=== PATIENT | male | born 1995 | race Caucasian/White ===

== ENCOUNTER 2019-01-24 11:30 | Emergency (ER) | payer SELFPAY ==
[~2019-01-24] VITALS: Ht 175.3 cm; Wt 65.9 kg
[2019-01-24 12:33] VITALS: BP 134/79
== END 2019-01-24 12:46 | disposition left against medical advice (07) ==
LOC: EMS 11:33
DX: F15.10 Other stimulant abuse, uncomplicated (principal); F17.210 Nicotine dependence, cigarettes, uncomplicated

== ENCOUNTER 2019-05-08 09:52 | Inpatient (IN) | payer MEDICAID ==
[~2019-05-08] VITALS: Ht 180.3 cm; Wt 56.2 kg
[2019-05-08 10:27] LABS: BASOPHILS % (AUTO) 0.9 % (0.0-2.0); EOSINOPHILS % (AUTO) 1.6 % (1.0-6.0); HEMATOCRIT 41.9 % (41-53); HEMOGLOBIN 13.7 g/dL (13.5-17.5); LYMPHOCYTES # (AUTO) 3.9 K/uL (1.0-4.8); LYMPHOCYTES % (AUTO) 22.2 % (22.0-44.0); MEAN CORPUSCULAR HEMOGLOBIN 28.2 pg (26.0-34.0); MEAN CORPUSCULAR HGB CONC 32.7 G/dL (31.0-37.0); MEAN CORPUSCULAR VOLUME 86 fL (80-100); MONOCYTES # (AUTO) 1.3 K/uL (0.1-1.0); MONOCYTES % (AUTO) 7.1 % (2.0-9.0); NEUTROPHILS # (AUTO) 12.1 K/uL (1.8-7.7); NEUTROPHILS % (AUTO) 68.2 % (40.0-70.0); PLATELET COUNT (AUTO) 377 K/uL (150-450); RED BLOOD CELL COUNT(AUTO) 4.85 MIL/uL (4.50-5.90); RED CELL DISTRIBUTION WIDTH 13.6 % (11.5-14.5)
[2019-05-08 10:36] LABS: ANION GAP 13 mmol/L (8-16); CALCIUM, TOTAL 9.3 mg/dL (8.8-10.5); CARBON DIOXIDE 26 mmol/L (22-29); CHLORIDE 104 mmol/L (98-107); CREATININE 0.88 mg/dL (0.60-1.30); GLOMERULAR FILTR. RATE CALC > 60 mL/min (>60); GLUCOSE,RANDOM 92 mg/dL (70-110); POTASSIUM 4.2 mmol/L (3.5-5.1); SODIUM SERUM 143 mmol/L (136-145); UREA NITROGEN, BLOOD 18 mg/dL (7-18)
[2019-05-08 10:41] LABS: SALICYLATE 1.3 mg/dL (2.8-20.0)
[2019-05-08 10:42] LABS: ALANINE AMINOTRANSFERASE 35 U/L (12-78); ALBUMIN 3.5 g/dL (3.4-5.0); ALKALINE PHOSPHATASE 85 U/L (46-116); ASPARTATE AMINOTRANSFERASE 41 U/L (15-37); BILIRUBIN,TOTAL 0.3 mg/dL (0.1-1.0); TOTAL PROTEIN, SERUM 7.6 g/dL (6.4-8.2)
[2019-05-08 10:47] LABS: ACETAMINOPHEN < 2 mcg/mL (10-30)
[2019-05-08 10:48] LABS: AMPHET/METH SCREEN,URINE POSITIVE (NEGATIVE); BARBITURATE SCREEN, URINE NEGATIVE (NEGATIVE); BENZODIAZEPINES SCREEN,URINE NEGATIVE (NEGATIVE); CANNABINOID SCREEN,URINE POSITIVE (NEGATIVE); COCAINE SCREEN,URINE POSITIVE (NEGATIVE); METHADONE SCREEN, URINE NEGATIVE (NEGATIVE); OPIATE SCREEN,URINE NEGATIVE (NEGATIVE)
[2019-05-08 10:50] LABS: PHENCYCLIDINE SCREEN,URINE NEGATIVE (NEGATIVE)
[2019-05-08 10:52] LABS: APPEARANCE,URINE CLEAR (CLEAR); BILIRUBIN,URINE NEGATIVE (NEGATIVE); GLUCOSE, URINE (UA) NEGATIVE (NEGATIVE); KETONES,URINE NEGATIVE (NEGATIVE); LEUKOCYTE ESTERASE ,URINE NEGATIVE (NEGATIVE); NITRATE,URINE NEGATIVE (NEGATIVE); OCCULT BLOOD,URINE NEGATIVE (NEGATIVE); PROTEIN,URINE NEGATIVE (NEGATIVE); UROBILINOGEN,URINE 0.2 mg/dL (<=1.0)
[2019-05-08] MEDS ORDERED: HALOPERIDOL LACTATE 5 MG/ML VIAL ONE (10:52)
[2019-05-08] MEDS ORDERED: DiphenhydrAMINE HCL 50 MG/ML VIAL ONE (10:52)
[2019-05-08] MEDS ORDERED: LORazepam 2 MG/ML VIAL ONE (10:52)
[2019-05-08] MEDS ORDERED: LORazepam 2 MG/ML VIAL IM ONE (11:00)
[2019-05-08] MEDS ORDERED: HALOPERIDOL LACTATE 5 MG/ML VIAL IM ONE (11:00)
[2019-05-08] MEDS ORDERED: DiphenhydrAMINE HCL 50 MG/ML VIAL IM ONE (11:00)
[2019-05-08 17:02] VITALS: BP_SYST 105; BP_DIAS 60; BP_DIAS 66
[2019-05-08] MEDS ORDERED: ALBUTEROL SULFATE HFA 90 MCG/PUFF 8 GM INHALER IH PRN (18:15)
[2019-05-08] MEDS ORDERED: MAG HYDROX/AL HYDROX/SIMETH ES 30 ML SUSPENSION UDCUP PO PRN (18:15)
[2019-05-08] MEDS ORDERED: PETROLATUM,WHITE 28 GM JELLY TP PRN (18:15)
[2019-05-08] MEDS ORDERED: CloNIDine HCL 0.1 MG TABLET PO PRN (18:15)
[2019-05-08] MEDS ORDERED: LOPERAMIDE HCL 2 MG CAPSULE PO PRN (18:15)
[2019-05-08] MEDS ORDERED: ACETAMINOPHEN 325 MG TABLET PO PRN (18:15)
[2019-05-08] MEDS ORDERED: BACITRACIN 28.4 GM OINTMENT TP PRN (18:15)
[2019-05-08] MEDS ORDERED: BENZOCAINE/MENTHOL LOZENGE MM PRN (18:15)
[2019-05-08] MEDS ORDERED: MAGNESIUM HYDROXIDE SUSPENSION 30 ML UDCUP PO PRN (18:15)
[2019-05-08] MEDS ORDERED: ONDANSETRON HCL 4 MG TABLET PO PRN (18:15)
[2019-05-08] MEDS ORDERED: IBUPROFEN 600 MG TABLET PO PRN (18:15)
[2019-05-09 05:15] VITALS: BP 112/68
[2019-05-09] MEDS: DOCUSATE SODIUM 100 MG CAPSULE PO SCH (08:37)
[2019-05-09] MEDS: LORazepam 2 MG TABLET PO PRN ×2 (08:37→14:45)
[2019-05-09] MEDS: OMEPRAZOLE 20 MG CAPSULE PO SCH (08:37)
[2019-05-09 09:13] LABS: FREE T4 (FREE THYROXINE) 1.19 ng/dL (0.76-1.46); THYROID STIMULATING HORMONE 0.69 uIU/mL (0.36-3.74)
[2019-05-09] MEDS: HALOPERIDOL 5 MG TABLET PO PRN (14:45)
[2019-05-09 16:00] VITALS: BP 108/68
[2019-05-09] MEDS: QUEtiapine FUMARATE 200 MG TABLET PO SCH (16:42)
[2019-05-09] MEDS: LITHIUM CARBONATE 300 MG CAPSULE PO SCH (16:42)
[2019-05-10 08:07] LABS: BAND NEUTROPHILS % (MANUAL) 0 % (0-5)
[2019-05-10 08:12] LABS: HEMATOCRIT 44.3 % (41-53); HEMOGLOBIN 14.4 g/dL (13.5-17.5); MEAN CORPUSCULAR HEMOGLOBIN 28.4 pg (26.0-34.0); MEAN CORPUSCULAR HGB CONC 32.6 G/dL (31.0-37.0); MEAN CORPUSCULAR VOLUME 87 fL (80-100); PLATELET COUNT (AUTO) 329 K/uL (150-450); RED BLOOD CELL COUNT(AUTO) 5.08 MIL/uL (4.50-5.90); RED CELL DISTRIBUTION WIDTH 13.6 % (11.5-14.5)
[2019-05-10] MEDS: MULTIVITAMINS WITH MINERALS, THERAPEUTIC TABLET PO SCH (08:14)
[2019-05-10] MEDS: LORazepam 2 MG TABLET PO PRN ×3 (08:15→16:45)
[2019-05-10] MEDS: QUEtiapine FUMARATE 200 MG TABLET PO SCH ×2 (08:15→16:45)
[2019-05-10] MEDS: DOCUSATE SODIUM 100 MG CAPSULE PO SCH (08:15)
[2019-05-10] MEDS: LITHIUM CARBONATE 300 MG CAPSULE PO SCH ×2 (08:15→16:45)
[2019-05-10] MEDS: OMEPRAZOLE 20 MG CAPSULE PO SCH (08:15)
[2019-05-10 08:24] LABS: ANION GAP 5 mmol/L (8-16); CALCIUM, TOTAL 9.1 mg/dL (8.8-10.5); CARBON DIOXIDE 26 mmol/L (22-29); CHLORIDE 104 mmol/L (98-107); CREATININE 0.78 mg/dL (0.60-1.30); GLOMERULAR FILTR. RATE CALC > 60 mL/min (>60); GLUCOSE,RANDOM 77 mg/dL (70-110); PHOSPHORUS 3.2 mg/dL (2.5-4.9); POTASSIUM 4.5 mmol/L (3.5-5.1); SODIUM SERUM 135 mmol/L (136-145); UREA NITROGEN, BLOOD 14 mg/dL (7-18)
[2019-05-10 08:59] LABS: BASOPHILS % (MANUAL) 1 % (0-2); LYMPHOCYTES % (MANUAL) 19 % (22-44); MONOCYTES % (MANUAL) 5 % (2-9); SEGMENTED NEUTROPHILS % 75 % (40-70)
[2019-05-10 09:14] VITALS: BP 113/71
[2019-05-10 16:45] VITALS: BP 115/72
[2019-05-11 06:35] VITALS: BP 116/74
[2019-05-11 08:12] LABS: HEMATOCRIT 46.5 % (41-53); HEMOGLOBIN 15.5 g/dL (13.5-17.5); MEAN CORPUSCULAR HEMOGLOBIN 29.2 pg (26.0-34.0); MEAN CORPUSCULAR HGB CONC 33.4 G/dL (31.0-37.0); MEAN CORPUSCULAR VOLUME 88 fL (80-100); PLATELET COUNT (AUTO) 328 K/uL (150-450); RED BLOOD CELL COUNT(AUTO) 5.31 MIL/uL (4.50-5.90); RED CELL DISTRIBUTION WIDTH 13.9 % (11.5-14.5)
[2019-05-11 08:15] VITALS: BP 109/63
[2019-05-11] MEDS: MAGNESIUM OXIDE 400 MG TABLET PO SCH ×2 (08:17→17:12)
[2019-05-11] MEDS: DOCUSATE SODIUM 100 MG CAPSULE PO SCH (08:17)
[2019-05-11] MEDS: OMEPRAZOLE 20 MG CAPSULE PO SCH (08:17)
[2019-05-11] MEDS: MULTIVITAMINS WITH MINERALS, THERAPEUTIC TABLET PO SCH (08:17)
[2019-05-11] MEDS: LITHIUM CARBONATE 300 MG CAPSULE PO SCH ×2 (08:17→17:11)
[2019-05-11] MEDS: QUEtiapine FUMARATE 200 MG TABLET PO SCH ×2 (08:17→17:11)
[2019-05-11 08:31] LABS: BAND NEUTROPHILS % (MANUAL) 1 % (0-5); LYMPHOCYTES % (MANUAL) 22 % (22-44); MONOCYTES % (MANUAL) 5 % (2-9); SEGMENTED NEUTROPHILS % 72 % (40-70)
[2019-05-11 08:39] LABS: ANION GAP 7 mmol/L (8-16); CALCIUM, TOTAL 9.6 mg/dL (8.8-10.5); CARBON DIOXIDE 28 mmol/L (22-29); CHLORIDE 101 mmol/L (98-107); CREATININE 0.87 mg/dL (0.60-1.30); GLOMERULAR FILTR. RATE CALC > 60 mL/min (>60); GLUCOSE,RANDOM 80 mg/dL (70-110); PHOSPHORUS 4.2 mg/dL (2.5-4.9); POTASSIUM 5.2 mmol/L (3.5-5.1); SODIUM SERUM 136 mmol/L (136-145); UREA NITROGEN, BLOOD 18 mg/dL (7-18)
[2019-05-11 16:00] VITALS: BP 141/83
[2019-05-11] MEDS: LORazepam 2 MG TABLET PO PRN (16:47)
[2019-05-11] MEDS: HALOPERIDOL 5 MG TABLET PO PRN (16:47)
[2019-05-11] MEDS ORDERED: SODIUM POLYSTYRENE SULFONATE 15 GM/60 ML SUSPENSION BOTTLE PO ONE (20:45)
[2019-05-11] MEDS: ZOLPIDEM TARTRATE 10 MG TABLET PO PRN (21:26)
[2019-05-12 07:48] LABS: BASOPHILS % (AUTO) 0.7 % (0.0-2.0); EOSINOPHILS % (AUTO) 1.8 % (1.0-6.0); HEMATOCRIT 46.6 % (41-53); LYMPHOCYTES # (AUTO) 2.9 K/uL (1.0-4.8); LYMPHOCYTES % (AUTO) 24.1 % (22.0-44.0); MEAN CORPUSCULAR HEMOGLOBIN 28.4 pg (26.0-34.0); MEAN CORPUSCULAR HGB CONC 32.3 G/dL (31.0-37.0); MEAN CORPUSCULAR VOLUME 88 fL (80-100); MONOCYTES # (AUTO) 0.8 K/uL (0.1-1.0); MONOCYTES % (AUTO) 6.4 % (2.0-9.0); NEUTROPHILS # (AUTO) 7.9 K/uL (1.8-7.7); PLATELET COUNT (AUTO) 333 K/uL (150-450); RED BLOOD CELL COUNT(AUTO) 5.29 MIL/uL (4.50-5.90); RED CELL DISTRIBUTION WIDTH 13.9 % (11.5-14.5)
[2019-05-12] MEDS: LORazepam 2 MG TABLET PO PRN ×2 (08:28→16:49)
[2019-05-12] MEDS: MULTIVITAMINS WITH MINERALS, THERAPEUTIC TABLET PO SCH (08:28)
[2019-05-12] MEDS: MAGNESIUM OXIDE 400 MG TABLET PO SCH ×2 (08:29→16:49)
[2019-05-12] MEDS: LITHIUM CARBONATE 300 MG CAPSULE PO SCH ×2 (08:29→16:49)
[2019-05-12] MEDS: QUEtiapine FUMARATE 200 MG TABLET PO SCH ×2 (08:29→16:49)
[2019-05-12] MEDS: DOCUSATE SODIUM 100 MG CAPSULE PO SCH (08:29)
[2019-05-12] MEDS: OMEPRAZOLE 20 MG CAPSULE PO SCH (08:29)
[2019-05-12 08:33] LABS: ALANINE AMINOTRANSFERASE 29 U/L (12-78); ALBUMIN 3.3 g/dL (3.4-5.0); ALKALINE PHOSPHATASE 78 U/L (46-116); ANION GAP 7 mmol/L (8-16); ASPARTATE AMINOTRANSFERASE 26 U/L (15-37); BILIRUBIN,TOTAL 0.2 mg/dL (0.1-1.0); CALCIUM, TOTAL 9.3 mg/dL (8.8-10.5); CARBON DIOXIDE 27 mmol/L (22-29); CHLORIDE 101 mmol/L (98-107); CREATININE 0.88 mg/dL (0.60-1.30); GLOMERULAR FILTR. RATE CALC > 60 mL/min (>60); GLUCOSE,RANDOM 84 mg/dL (70-110); POTASSIUM 4.4 mmol/L (3.5-5.1); SODIUM SERUM 135 mmol/L (136-145); TOTAL PROTEIN, SERUM 8.4 g/dL (6.4-8.2); UREA NITROGEN, BLOOD 25 mg/dL (7-18)
[2019-05-13 04:54] VITALS: BP 127/68
[2019-05-13 08:16] VITALS: BP 109/63
[2019-05-13] MEDS: DOCUSATE SODIUM 100 MG CAPSULE PO SCH (08:33)
[2019-05-13] MEDS: MAGNESIUM OXIDE 400 MG TABLET PO SCH ×2 (08:33→17:02)
[2019-05-13] MEDS: LORazepam 2 MG TABLET PO PRN ×3 (08:33→20:26)
[2019-05-13] MEDS: LITHIUM CARBONATE 300 MG CAPSULE PO SCH ×2 (08:34→17:02)
[2019-05-13] MEDS: OMEPRAZOLE 20 MG CAPSULE PO SCH (08:34)
[2019-05-13] MEDS: MULTIVITAMINS WITH MINERALS, THERAPEUTIC TABLET PO SCH (08:34)
[2019-05-13] MEDS: QUEtiapine FUMARATE 200 MG TABLET PO SCH ×2 (08:34→17:02)
[2019-05-13 16:28] VITALS: BP 127/72
[2019-05-13] MEDS ORDERED: BACITRACIN 0.9 GM PACKET OINTMENT TP ONE (17:30)
[2019-05-13] MEDS ORDERED: CEPHALEXIN MONOHYDRATE 500 MG CAPSULE PO ONE (17:30)
[2019-05-13] MEDS: ZOLPIDEM TARTRATE 10 MG TABLET PO PRN (20:26)
[2019-05-14] MEDS: LORazepam 2 MG TABLET PO PRN ×2 (04:04→16:52)
[2019-05-14] MEDS: HALOPERIDOL 5 MG TABLET PO PRN ×2 (04:04→16:52)
[2019-05-14 05:18] VITALS: BP 118/67
[2019-05-14 08:00] VITALS: BP 120/62
[2019-05-14] MEDS ORDERED: CEPHALEXIN MONOHYDRATE 500 MG CAPSULE PO SCH (09:00)
[2019-05-14] MEDS ORDERED: BACITRACIN 28.4 GM OINTMENT TP SCH (09:00)
[2019-05-14] MEDS: SERTRALINE HCL 50 MG TABLET PO SCH (09:45)
[2019-05-14] MEDS: MAGNESIUM OXIDE 400 MG TABLET PO SCH ×2 (09:46→16:51)
[2019-05-14] MEDS: OMEPRAZOLE 20 MG CAPSULE PO SCH (09:46)
[2019-05-14] MEDS: DOCUSATE SODIUM 100 MG CAPSULE PO SCH (09:46)
[2019-05-14] MEDS: MULTIVITAMINS WITH MINERALS, THERAPEUTIC TABLET PO SCH (09:47)
[2019-05-14] MEDS: LITHIUM CARBONATE 300 MG CAPSULE PO SCH ×2 (09:47→16:52)
[2019-05-14] MEDS: CEPHALEXIN MONOHYDRATE 500 MG CAPSULE PO SCH ×3 (09:47→16:52)
[2019-05-14] MEDS: QUEtiapine FUMARATE 200 MG TABLET PO SCH ×2 (09:47→16:52)
[2019-05-14] MEDS ORDERED: HALOPERIDOL LACTATE 5 MG/ML VIAL ONE (10:01)
[2019-05-14] MEDS ORDERED: LORazepam 2 MG/ML VIAL ONE (10:01)
[2019-05-14] MEDS ORDERED: LORazepam 2 MG/ML VIAL IM ONE ×2 (10:45→11:00)
[2019-05-14] MEDS ORDERED: DiphenhydrAMINE HCL 50 MG/ML VIAL IM ONE ×2 (10:45→11:00)
[2019-05-14] MEDS ORDERED: HALOPERIDOL LACTATE 5 MG/ML VIAL IM ONE (10:45)
[2019-05-14 16:00] VITALS: BP 104/65
[2019-05-15 00:43] VITALS: BP 130/80
[2019-05-15] MEDS: LORazepam 2 MG TABLET PO PRN ×2 (04:02→09:01)
[2019-05-15] MEDS: HALOPERIDOL 5 MG TABLET PO PRN ×2 (04:02→09:01)
[2019-05-15 08:19] VITALS: BP 118/73
[2019-05-15] MEDS: MAGNESIUM OXIDE 400 MG TABLET PO SCH ×2 (09:01→16:22)
[2019-05-15] MEDS: SERTRALINE HCL 50 MG TABLET PO SCH (09:01)
[2019-05-15] MEDS: OMEPRAZOLE 20 MG CAPSULE PO SCH (09:02)
[2019-05-15] MEDS: DOCUSATE SODIUM 100 MG CAPSULE PO SCH (09:02)
[2019-05-15] MEDS: MULTIVITAMINS WITH MINERALS, THERAPEUTIC TABLET PO SCH (09:02)
[2019-05-15] MEDS: LITHIUM CARBONATE 300 MG CAPSULE PO SCH ×2 (09:02→16:22)
[2019-05-15] MEDS: QUEtiapine FUMARATE 200 MG TABLET PO SCH ×2 (09:02→16:22)
[2019-05-15] MEDS: CEPHALEXIN MONOHYDRATE 500 MG CAPSULE PO SCH ×3 (09:02→16:22)
[2019-05-15 16:46] VITALS: BP 107/64
[2019-05-16 04:27] VITALS: BP 119/82
[2019-05-16] MEDS: QUEtiapine FUMARATE 200 MG TABLET PO SCH ×2 (08:50→16:19)
[2019-05-16] MEDS: CEPHALEXIN MONOHYDRATE 500 MG CAPSULE PO SCH ×3 (08:50→16:19)
[2019-05-16] MEDS: MAGNESIUM OXIDE 400 MG TABLET PO SCH ×2 (08:50→16:19)
[2019-05-16] MEDS: MULTIVITAMINS WITH MINERALS, THERAPEUTIC TABLET PO SCH (08:50)
[2019-05-16] MEDS: DOCUSATE SODIUM 100 MG CAPSULE PO SCH (08:50)
[2019-05-16] MEDS: OMEPRAZOLE 20 MG CAPSULE PO SCH (08:50)
[2019-05-16] MEDS: SERTRALINE HCL 50 MG TABLET PO SCH (08:50)
[2019-05-16] MEDS: LITHIUM CARBONATE 300 MG CAPSULE PO SCH ×2 (08:51→16:19)
[2019-05-16] MEDS: LORazepam 2 MG TABLET PO PRN ×2 (08:51→16:19)
[2019-05-16 10:32] VITALS: BP 109/61
[2019-05-16 12:37] LABS: HIV 1-2 SCREEN 4TH GEN W/RFLX Non Reactive (Non Reactive)
[2019-05-16 16:00] VITALS: BP 109/84
[2019-05-16] MEDS: HALOPERIDOL 5 MG TABLET PO PRN (16:19)
[2019-05-17 06:28] VITALS: BP 106/70
[2019-05-17 08:15] VITALS: BP 108/77
[2019-05-17] MEDS: QUEtiapine FUMARATE 200 MG TABLET PO SCH ×2 (08:29→16:42)
[2019-05-17] MEDS: OMEPRAZOLE 20 MG CAPSULE PO SCH (08:29)
[2019-05-17] MEDS: MAGNESIUM OXIDE 400 MG TABLET PO SCH ×2 (08:29→16:41)
[2019-05-17] MEDS: SERTRALINE HCL 50 MG TABLET PO SCH (08:29)
[2019-05-17] MEDS: MULTIVITAMINS WITH MINERALS, THERAPEUTIC TABLET PO SCH (08:29)
[2019-05-17] MEDS: DOCUSATE SODIUM 100 MG CAPSULE PO SCH (08:29)
[2019-05-17] MEDS: LITHIUM CARBONATE 300 MG CAPSULE PO SCH ×2 (08:29→16:41)
[2019-05-17] MEDS: CEPHALEXIN MONOHYDRATE 500 MG CAPSULE PO SCH ×3 (08:29→16:41)
[2019-05-17] MEDS: LORazepam 2 MG TABLET PO PRN (14:20)
[2019-05-17] MEDS: ZONISAMIDE 100 MG CAPSULE PO SCH (16:41)
[2019-05-18 08:21] VITALS: BP 109/64
[2019-05-18] MEDS ORDERED: SERT50TA12 PO (08:30)
[2019-05-18] MEDS ORDERED: QUET200T PO (08:30)
[2019-05-18] MEDS ORDERED: LITH300C3 PO (08:30)
[2019-05-18] MEDS ORDERED: CEPH500 PO (08:30)
[2019-05-18] MEDS ORDERED: [UNRECOGNIZED DRUG - CODE] PO (08:30)
[2019-05-18] MEDS: OMEPRAZOLE 20 MG CAPSULE PO SCH (08:56)
[2019-05-18] MEDS: SERTRALINE HCL 50 MG TABLET PO SCH (08:56)
[2019-05-18] MEDS: DOCUSATE SODIUM 100 MG CAPSULE PO SCH (08:56)
[2019-05-18] MEDS: MAGNESIUM OXIDE 400 MG TABLET PO SCH (08:56)
[2019-05-18] MEDS: QUEtiapine FUMARATE 200 MG TABLET PO SCH (08:56)
[2019-05-18] MEDS: MULTIVITAMINS WITH MINERALS, THERAPEUTIC TABLET PO SCH (08:56)
[2019-05-18] MEDS: CEPHALEXIN MONOHYDRATE 500 MG CAPSULE PO SCH ×2 (08:56→12:38)
[2019-05-18] MEDS: LITHIUM CARBONATE 300 MG CAPSULE PO SCH (08:56)
[2019-05-18] MEDS: ZONISAMIDE 100 MG CAPSULE PO SCH (08:57)
[2019-05-18] MEDS: LORazepam 2 MG TABLET PO PRN (08:57)
== END 2019-05-18 14:52 | disposition home or self-care (01) | DRG 750 ==
LOC: EMS 09:53 → B3A 13:54
DX: F25.1 Schizoaffective disorder, depressive type (principal); G40.909 Epilepsy, unspecified, not intractable, without status epilepticus; B15.9 Hepatitis A without hepatic coma; F12.10 Cannabis abuse, uncomplicated; F14.10 Cocaine abuse, uncomplicated; F15.10 Other stimulant abuse, uncomplicated; B19.20 Unspecified viral hepatitis C without hepatic coma; K59.00 Constipation, unspecified; G47.00 Insomnia, unspecified; F41.9 Anxiety disorder, unspecified; F17.210 Nicotine dependence, cigarettes, uncomplicated; D72.829 Elevated white blood cell count, unspecified; Z59.0 Homelessness; Z79.899 Other long term (current) drug therapy
CPT/HCPCS: 83735; 84100; 84439; 84443; 85007; 87389; 96372; G0480; G0481; J1200; J1630; J2060

== ENCOUNTER 2019-05-23 15:50 | Inpatient (IN) | payer MEDICAID ==
[~2019-05-23] VITALS: Ht 180.3 cm; Wt 70.3 kg
[~2019-05-23 15:50] MED LIST: CEPH500 PO; LITH300C3 PO; QUET200T PO; SERT50TA12 PO; [UNRECOGNIZED DRUG - CODE] PO
[2019-05-23 16:33] LABS: BASOPHILS % (AUTO) 0.7 % (0.0-2.0); EOSINOPHILS % (AUTO) 1.3 % (1.0-6.0); HEMATOCRIT 42.2 % (41-53); LYMPHOCYTES # (AUTO) 4.1 K/uL (1.0-4.8); LYMPHOCYTES % (AUTO) 27.4 % (22.0-44.0); MEAN CORPUSCULAR HEMOGLOBIN 28.8 pg (26.0-34.0); MEAN CORPUSCULAR VOLUME 87 fL (80-100); MONOCYTES # (AUTO) 1.1 K/uL (0.1-1.0); MONOCYTES % (AUTO) 7.6 % (2.0-9.0); NEUTROPHILS # (AUTO) 9.3 K/uL (1.8-7.7); PLATELET COUNT (AUTO) 338 K/uL (150-450); RED BLOOD CELL COUNT(AUTO) 4.85 MIL/uL (4.50-5.90); RED CELL DISTRIBUTION WIDTH 14.1 % (11.5-14.5)
[2019-05-23] MEDS ORDERED: LORazepam 2 MG/ML VIAL IM ONE (16:45)
[2019-05-23] MEDS ORDERED: HALOPERIDOL LACTATE 5 MG/ML VIAL IM ONE (16:45)
[2019-05-23] MEDS ORDERED: DiphenhydrAMINE HCL 50 MG/ML VIAL IM ONE (16:45)
[2019-05-23 16:50] LABS: ANION GAP 10 mmol/L (8-16); CALCIUM, TOTAL 9.1 mg/dL (8.8-10.5); CARBON DIOXIDE 27 mmol/L (22-29); CHLORIDE 103 mmol/L (98-107); CREATININE 0.98 mg/dL (0.60-1.30); GLOMERULAR FILTR. RATE CALC > 60 mL/min (>60); GLUCOSE,RANDOM 91 mg/dL (70-110); POTASSIUM 3.5 mmol/L (3.5-5.1); SODIUM SERUM 140 mmol/L (136-145); UREA NITROGEN, BLOOD 26 mg/dL (7-18)
[2019-05-23 16:56] LABS: ALANINE AMINOTRANSFERASE 31 U/L (12-78); ALBUMIN 3.9 g/dL (3.4-5.0); ALKALINE PHOSPHATASE 84 U/L (46-116); ASPARTATE AMINOTRANSFERASE 28 U/L (15-37); BILIRUBIN,TOTAL 0.5 mg/dL (0.1-1.0); TOTAL PROTEIN, SERUM 8.2 g/dL (6.4-8.2)
[2019-05-23 17:16] LABS: AMPHET/METH SCREEN,URINE POSITIVE (NEGATIVE); BARBITURATE SCREEN, URINE NEGATIVE (NEGATIVE); BENZODIAZEPINES SCREEN,URINE NEGATIVE (NEGATIVE); CANNABINOID SCREEN,URINE NEGATIVE (NEGATIVE); COCAINE SCREEN,URINE NEGATIVE (NEGATIVE); METHADONE SCREEN, URINE NEGATIVE (NEGATIVE); OPIATE SCREEN,URINE NEGATIVE (NEGATIVE); PHENCYCLIDINE SCREEN,URINE NEGATIVE (NEGATIVE)
[2019-05-23] MEDS ORDERED: ZOLPIDEM TARTRATE 10 MG TABLET PO PRN (18:15)
[2019-05-23 20:32] VITALS: BP 129/83
[2019-05-24] MEDS: HALOPERIDOL 5 MG TABLET PO PRN (08:38)
[2019-05-24] MEDS: LORazepam 2 MG TABLET PO PRN ×2 (08:38→15:33)
[2019-05-24 09:30] VITALS: BP 131/80
[2019-05-24] MEDS ORDERED: MAGNESIUM HYDROXIDE SUSPENSION 30 ML UDCUP PO PRN (14:00)
[2019-05-24] MEDS ORDERED: ALBUTEROL SULFATE HFA 90 MCG/PUFF 8 GM INHALER IH PRN (14:00)
[2019-05-24] MEDS ORDERED: MAG HYDROX/AL HYDROX/SIMETH ES 30 ML SUSPENSION UDCUP PO PRN (14:00)
[2019-05-24] MEDS ORDERED: CloNIDine HCL 0.1 MG TABLET PO PRN (14:00)
[2019-05-24] MEDS ORDERED: ONDANSETRON HCL 4 MG TABLET PO PRN (14:00)
[2019-05-24] MEDS ORDERED: ACETAMINOPHEN 325 MG TABLET PO PRN (14:00)
[2019-05-24] MEDS ORDERED: LOPERAMIDE HCL 2 MG CAPSULE PO PRN (14:00)
[2019-05-24] MEDS ORDERED: IBUPROFEN 600 MG TABLET PO PRN (14:00)
[2019-05-24] MEDS: SERTRALINE HCL 50 MG TABLET PO SCH (14:39)
[2019-05-24] MEDS: QUEtiapine FUMARATE 200 MG TABLET PO SCH (17:58)
[2019-05-24] MEDS: ZONISAMIDE 100 MG CAPSULE PO SCH (17:58)
[2019-05-24] MEDS: LITHIUM CARBONATE 300 MG CAPSULE PO SCH (17:58)
[2019-05-24 20:04] VITALS: BP 123/81
[2019-05-25] MEDS: LORazepam 2 MG TABLET PO PRN ×3 (05:53→16:20)
[2019-05-25] MEDS: HALOPERIDOL 5 MG TABLET PO PRN (06:34)
[2019-05-25] MEDS: SERTRALINE HCL 50 MG TABLET PO SCH (08:39)
[2019-05-25] MEDS: LITHIUM CARBONATE 300 MG CAPSULE PO SCH ×2 (08:40→16:06)
[2019-05-25] MEDS: ZONISAMIDE 100 MG CAPSULE PO SCH ×2 (08:40→16:06)
[2019-05-25] MEDS: DOCUSATE SODIUM 100 MG CAPSULE PO SCH (08:40)
[2019-05-25] MEDS: QUEtiapine FUMARATE 200 MG TABLET PO SCH ×2 (08:40→16:06)
[2019-05-25 09:04] LABS: HEMOGLOBIN A1C 5.4 % (4.5-6.2)
[2019-05-25 09:09] LABS: CHOL/HDL RATIO 2.7 (4.2-7.3); THYROID STIMULATING HORMONE 1.03 uIU/mL (0.36-3.74)
[2019-05-25 09:29] VITALS: BP 132/86
[2019-05-25 16:46] VITALS: BP 115/58
[2019-05-26] MEDS: LORazepam 2 MG TABLET PO PRN ×3 (06:33→16:50)
[2019-05-26] MEDS: QUEtiapine FUMARATE 200 MG TABLET PO SCH ×2 (07:42→16:50)
[2019-05-26] MEDS: SERTRALINE HCL 50 MG TABLET PO SCH (07:42)
[2019-05-26] MEDS: HALOPERIDOL 5 MG TABLET PO PRN ×3 (07:42→18:00)
[2019-05-26] MEDS: LITHIUM CARBONATE 300 MG CAPSULE PO SCH ×2 (07:42→16:50)
[2019-05-26] MEDS: DOCUSATE SODIUM 100 MG CAPSULE PO SCH (07:43)
[2019-05-26] MEDS: ZONISAMIDE 100 MG CAPSULE PO SCH ×2 (07:44→16:50)
[2019-05-26 08:03] VITALS: BP 130/83
[2019-05-26 08:46] LABS: BASOPHILS % (AUTO) 0.6 % (0.0-2.0); EOSINOPHILS % (AUTO) 2.2 % (1.0-6.0); HEMATOCRIT 43.8 % (41-53); HEMOGLOBIN 14.4 g/dL (13.5-17.5); LYMPHOCYTES # (AUTO) 3.5 K/uL (1.0-4.8); LYMPHOCYTES % (AUTO) 26.3 % (22.0-44.0); MEAN CORPUSCULAR HEMOGLOBIN 28.7 pg (26.0-34.0); MEAN CORPUSCULAR VOLUME 87 fL (80-100); MONOCYTES # (AUTO) 0.9 K/uL (0.1-1.0); MONOCYTES % (AUTO) 6.8 % (2.0-9.0); NEUTROPHILS # (AUTO) 8.5 K/uL (1.8-7.7); NEUTROPHILS % (AUTO) 64.1 % (40.0-70.0); PLATELET COUNT (AUTO) 301 K/uL (150-450); RED BLOOD CELL COUNT(AUTO) 5.03 MIL/uL (4.50-5.90); RED CELL DISTRIBUTION WIDTH 14.6 % (11.5-14.5)
[2019-05-26 09:12] LABS: ANION GAP 6 mmol/L (8-16); CALCIUM, TOTAL 9.2 mg/dL (8.8-10.5); CARBON DIOXIDE 27 mmol/L (22-29); CHLORIDE 102 mmol/L (98-107); CREATININE 0.97 mg/dL (0.60-1.30); GLOMERULAR FILTR. RATE CALC > 60 mL/min (>60); GLUCOSE,RANDOM 79 mg/dL (70-110); PHOSPHORUS 2.9 mg/dL (2.5-4.9); POTASSIUM 4.3 mmol/L (3.5-5.1); SODIUM SERUM 135 mmol/L (136-145); UREA NITROGEN, BLOOD 25 mg/dL (7-18)
[2019-05-26 17:46] VITALS: BP 120/77
[2019-05-27 08:20] VITALS: BP 110/63
[2019-05-27] MEDS: ZONISAMIDE 100 MG CAPSULE PO SCH ×2 (08:29→16:20)
[2019-05-27] MEDS: QUEtiapine FUMARATE 200 MG TABLET PO SCH ×2 (08:30→17:23)
[2019-05-27] MEDS: LITHIUM CARBONATE 300 MG CAPSULE PO SCH ×2 (08:30→16:20)
[2019-05-27] MEDS: SERTRALINE HCL 50 MG TABLET PO SCH (08:30)
[2019-05-27] MEDS: DOCUSATE SODIUM 100 MG CAPSULE PO SCH (08:31)
[2019-05-27] MEDS: LORazepam 2 MG TABLET PO PRN (16:20)
[2019-05-27] MEDS: HALOPERIDOL 5 MG TABLET PO PRN (16:21)
[2019-05-27 16:47] VITALS: BP 132/91
[2019-05-28] MEDS: HALOPERIDOL 5 MG TABLET PO PRN (06:51)
[2019-05-28] MEDS: LORazepam 2 MG TABLET PO PRN (06:51)
[2019-05-28 06:52] VITALS: BP 117/60
[2019-05-28] MEDS: ZONISAMIDE 100 MG CAPSULE PO SCH ×2 (09:13→16:32)
[2019-05-28] MEDS: DOCUSATE SODIUM 100 MG CAPSULE PO SCH (09:13)
[2019-05-28] MEDS: QUEtiapine FUMARATE 200 MG TABLET PO SCH ×2 (09:13→16:32)
[2019-05-28] MEDS: SERTRALINE HCL 50 MG TABLET PO SCH (09:13)
[2019-05-28] MEDS: LITHIUM CARBONATE 300 MG CAPSULE PO SCH ×2 (09:13→16:32)
[2019-05-28 09:28] VITALS: BP 129/84
[2019-05-28 09:50] LABS: HEMATOCRIT 43.8 % (41-53); HEMOGLOBIN 14.1 g/dL (13.5-17.5); MEAN CORPUSCULAR HEMOGLOBIN 28.3 pg (26.0-34.0); MEAN CORPUSCULAR HGB CONC 32.2 G/dL (31.0-37.0); MEAN CORPUSCULAR VOLUME 88 fL (80-100); PLATELET COUNT (AUTO) 309 K/uL (150-450); RED BLOOD CELL COUNT(AUTO) 4.99 MIL/uL (4.50-5.90); RED CELL DISTRIBUTION WIDTH 14.3 % (11.5-14.5)
[2019-05-28 10:14] LABS: ANION GAP 6 mmol/L (8-16); CARBON DIOXIDE 27 mmol/L (22-29); CHLORIDE 101 mmol/L (98-107); CREATININE 0.98 mg/dL (0.60-1.30); GLOMERULAR FILTR. RATE CALC > 60 mL/min (>60); GLUCOSE,RANDOM 103 mg/dL (70-110); PHOSPHORUS 3.9 mg/dL (2.5-4.9); POTASSIUM 4.2 mmol/L (3.5-5.1); SODIUM SERUM 134 mmol/L (136-145); UREA NITROGEN, BLOOD 28 mg/dL (7-18)
[2019-05-28 10:20] LABS: BAND NEUTROPHILS % (MANUAL) 3 % (0-5); EOSINOPHILS % (MANUAL) 1 % (1-6); LYMPHOCYTES % (MANUAL) 20 % (22-44); MONOCYTES % (MANUAL) 6 % (2-9); SEGMENTED NEUTROPHILS % 70 % (40-70)
[2019-05-28 16:38] VITALS: BP 107/67
[2019-05-29] MEDS: LORazepam 2 MG TABLET PO PRN (05:08)
[2019-05-29] MEDS: HALOPERIDOL 5 MG TABLET PO PRN (05:08)
[2019-05-29 05:09] VITALS: BP 117/66
[2019-05-29] MEDS: ZONISAMIDE 100 MG CAPSULE PO SCH ×2 (08:38→16:36)
[2019-05-29] MEDS: QUEtiapine FUMARATE 200 MG TABLET PO SCH ×2 (08:39→16:36)
[2019-05-29] MEDS: SERTRALINE HCL 100 MG TABLET PO SCH (08:39)
[2019-05-29] MEDS: LITHIUM CARBONATE 300 MG CAPSULE PO SCH ×2 (08:39→16:35)
[2019-05-29] MEDS: DOCUSATE SODIUM 100 MG CAPSULE PO SCH (08:40)
[2019-05-29 11:48] VITALS: BP 117/85
[2019-05-29 16:10] VITALS: BP 119/81
[2019-05-30 01:39] VITALS: BP 112/76
[2019-05-30] MEDS: LORazepam 2 MG TABLET PO PRN (04:34)
[2019-05-30] MEDS: ZONISAMIDE 100 MG CAPSULE PO SCH ×2 (09:28→16:14)
[2019-05-30] MEDS: SODIUM CHLORIDE 1 GM TABLET PO SCH ×3 (09:28→16:13)
[2019-05-30] MEDS: HALOPERIDOL 5 MG TABLET PO PRN (09:30)
[2019-05-30] MEDS: CEPHALEXIN MONOHYDRATE 500 MG CAPSULE PO SCH ×3 (09:30→16:15)
[2019-05-30] MEDS: MAGNESIUM OXIDE 400 MG TABLET PO SCH ×2 (09:30→16:14)
[2019-05-30] MEDS: SERTRALINE HCL 100 MG TABLET PO SCH (09:30)
[2019-05-30] MEDS: LITHIUM CARBONATE 300 MG CAPSULE PO SCH ×2 (09:30→16:14)
[2019-05-30] MEDS: DOCUSATE SODIUM 100 MG CAPSULE PO SCH (09:31)
[2019-05-30] MEDS: LORazepam 1 MG TABLET PO PRN ×2 (09:32→16:16)
[2019-05-30] MEDS: QUEtiapine FUMARATE 200 MG TABLET PO SCH ×2 (09:32→16:14)
[2019-05-30 13:20] VITALS: BP 125/88
[2019-05-30 16:25] VITALS: BP 121/75
[2019-05-31 06:41] LABS: HEMATOCRIT 47.6 % (41-53); HEMOGLOBIN 15.5 g/dL (13.5-17.5); MEAN CORPUSCULAR HGB CONC 32.5 G/dL (31.0-37.0); MEAN CORPUSCULAR VOLUME 89 fL (80-100); PLATELET COUNT (AUTO) 303 K/uL (150-450); RED BLOOD CELL COUNT(AUTO) 5.34 MIL/uL (4.50-5.90); RED CELL DISTRIBUTION WIDTH 14.8 % (11.5-14.5)
[2019-05-31 07:04] LABS: ANION GAP 6 mmol/L (8-16); CALCIUM, TOTAL 9.2 mg/dL (8.8-10.5); CARBON DIOXIDE 27 mmol/L (22-29); CHLORIDE 105 mmol/L (98-107); GLOMERULAR FILTR. RATE CALC > 60 mL/min (>60); GLUCOSE,RANDOM 95 mg/dL (70-110); PHOSPHORUS 3.5 mg/dL (2.5-4.9); POTASSIUM 5.6 mmol/L (3.5-5.1); SODIUM SERUM 138 mmol/L (136-145); UREA NITROGEN, BLOOD 29 mg/dL (7-18)
[2019-05-31 07:38] LABS: BAND NEUTROPHILS % (MANUAL) 1 % (0-5); EOSINOPHILS % (MANUAL) 4 % (1-6); LYMPHOCYTES % (MANUAL) 32 % (22-44); MONOCYTES % (MANUAL) 5 % (2-9); SEGMENTED NEUTROPHILS % 58 % (40-70)
[2019-05-31] MEDS: ZONISAMIDE 100 MG CAPSULE PO SCH ×2 (07:49→17:50)
[2019-05-31] MEDS: SERTRALINE HCL 100 MG TABLET PO SCH (07:51)
[2019-05-31] MEDS: QUEtiapine FUMARATE 200 MG TABLET PO SCH ×2 (07:51→17:49)
[2019-05-31] MEDS: CEPHALEXIN MONOHYDRATE 500 MG CAPSULE PO SCH ×3 (07:51→17:49)
[2019-05-31] MEDS: HALOPERIDOL 5 MG TABLET PO PRN (07:51)
[2019-05-31] MEDS: MAGNESIUM OXIDE 400 MG TABLET PO SCH ×2 (07:56→17:49)
[2019-05-31] MEDS: DOCUSATE SODIUM 100 MG CAPSULE PO SCH (07:56)
[2019-05-31] MEDS: LITHIUM CARBONATE 300 MG CAPSULE PO SCH ×2 (07:56→17:50)
[2019-05-31] MEDS: LORazepam 1 MG TABLET PO PRN ×2 (07:59→15:47)
[2019-05-31 10:04] VITALS: BP 120/79
[2019-05-31 16:00] VITALS: BP 131/78
[2019-06-01 08:00] VITALS: BP 123/83
[2019-06-01] MEDS: ZONISAMIDE 100 MG CAPSULE PO SCH ×2 (08:09→17:34)
[2019-06-01] MEDS: LITHIUM CARBONATE 300 MG CAPSULE PO SCH ×2 (08:12→17:34)
[2019-06-01] MEDS: CEPHALEXIN MONOHYDRATE 500 MG CAPSULE PO SCH ×3 (08:12→17:34)
[2019-06-01] MEDS: MAGNESIUM OXIDE 400 MG TABLET PO SCH (08:12)
[2019-06-01] MEDS: QUEtiapine FUMARATE 200 MG TABLET PO SCH ×2 (08:12→17:34)
[2019-06-01] MEDS: LORazepam 1 MG TABLET PO PRN ×2 (08:12→14:35)
[2019-06-01] MEDS: SERTRALINE HCL 100 MG TABLET PO SCH (08:12)
[2019-06-01] MEDS: DOCUSATE SODIUM 100 MG CAPSULE PO SCH (08:13)
[2019-06-01] MEDS: HALOPERIDOL 5 MG TABLET PO PRN ×2 (08:14→14:35)
[2019-06-01 18:16] VITALS: BP 129/72
[2019-06-02 07:25] LABS: HEMATOCRIT 47.6 % (41-53); HEMOGLOBIN 15.5 g/dL (13.5-17.5); MEAN CORPUSCULAR HEMOGLOBIN 28.7 pg (26.0-34.0); MEAN CORPUSCULAR HGB CONC 32.5 G/dL (31.0-37.0); MEAN CORPUSCULAR VOLUME 88 fL (80-100); PLATELET COUNT (AUTO) 313 K/uL (150-450); RED CELL DISTRIBUTION WIDTH 14.7 % (11.5-14.5)
[2019-06-02 07:48] LABS: ANION GAP 10 mmol/L (8-16); CALCIUM, TOTAL 9.1 mg/dL (8.8-10.5); CARBON DIOXIDE 24 mmol/L (22-29); CHLORIDE 103 mmol/L (98-107); CREATININE 1.03 mg/dL (0.60-1.30); GLOMERULAR FILTR. RATE CALC > 60 mL/min (>60); GLUCOSE,RANDOM 86 mg/dL (70-110); PHOSPHORUS 3.1 mg/dL (2.5-4.9); POTASSIUM 4.3 mmol/L (3.5-5.1); SODIUM SERUM 137 mmol/L (136-145); UREA NITROGEN, BLOOD 30 mg/dL (7-18)
[2019-06-02] MEDS: ZONISAMIDE 100 MG CAPSULE PO SCH ×2 (08:32→16:24)
[2019-06-02] MEDS: DOCUSATE SODIUM 100 MG CAPSULE PO SCH (08:33)
[2019-06-02] MEDS: QUEtiapine FUMARATE 200 MG TABLET PO SCH ×2 (08:33→16:24)
[2019-06-02] MEDS: CEPHALEXIN MONOHYDRATE 500 MG CAPSULE PO SCH ×3 (08:33→16:22)
[2019-06-02] MEDS: LITHIUM CARBONATE 300 MG CAPSULE PO SCH (08:33)
[2019-06-02] MEDS: MAGNESIUM OXIDE 400 MG TABLET PO SCH (08:33)
[2019-06-02] MEDS: SERTRALINE HCL 100 MG TABLET PO SCH (08:33)
[2019-06-02 09:01] VITALS: BP 111/78
[2019-06-02 09:39] LABS: BAND NEUTROPHILS % (MANUAL) 1 % (0-5); EOSINOPHILS % (MANUAL) 6 % (1-6); LYMPHOCYTES % (MANUAL) 37 % (22-44); MONOCYTES % (MANUAL) 5 % (2-9); SEGMENTED NEUTROPHILS % 51 % (40-70)
[2019-06-02] MEDS: LORazepam 1 MG TABLET PO PRN (14:28)
[2019-06-02] MEDS: HALOPERIDOL 5 MG TABLET PO PRN (14:28)
[2019-06-02] MEDS: LITHIUM CARBONATE 300 MG TABLET PO SCH (16:31)
[2019-06-02 18:39] VITALS: BP 133/69
[2019-06-03 01:09] VITALS: BP 111/74
[2019-06-03] MEDS: DOCUSATE SODIUM 100 MG CAPSULE PO SCH (08:05)
[2019-06-03] MEDS: MAGNESIUM OXIDE 400 MG TABLET PO SCH (08:05)
[2019-06-03] MEDS: CEPHALEXIN MONOHYDRATE 500 MG CAPSULE PO SCH ×3 (08:05→16:14)
[2019-06-03] MEDS: QUEtiapine FUMARATE 200 MG TABLET PO SCH ×2 (08:05→16:14)
[2019-06-03] MEDS: LITHIUM CARBONATE 300 MG TABLET PO SCH ×2 (08:05→16:14)
[2019-06-03] MEDS: SERTRALINE HCL 100 MG TABLET PO SCH (08:05)
[2019-06-03] MEDS: ZONISAMIDE 100 MG CAPSULE PO SCH ×2 (08:06→16:14)
[2019-06-03] MEDS: HALOPERIDOL 5 MG TABLET PO PRN ×2 (08:10→14:53)
[2019-06-03] MEDS: LORazepam 1 MG TABLET PO PRN ×2 (08:10→14:53)
[2019-06-03 08:43] VITALS: BP 128/84
[2019-06-03 17:51] VITALS: BP 119/83
[2019-06-04] MEDS: SERTRALINE HCL 100 MG TABLET PO SCH (07:53)
[2019-06-04] MEDS: MAGNESIUM OXIDE 400 MG TABLET PO SCH (07:53)
[2019-06-04] MEDS: DOCUSATE SODIUM 100 MG CAPSULE PO SCH (07:53)
[2019-06-04] MEDS: CEPHALEXIN MONOHYDRATE 500 MG CAPSULE PO SCH ×3 (07:53→16:18)
[2019-06-04] MEDS: QUEtiapine FUMARATE 200 MG TABLET PO SCH ×2 (07:53→16:18)
[2019-06-04] MEDS: LITHIUM CARBONATE 300 MG TABLET PO SCH ×2 (07:55→16:18)
[2019-06-04] MEDS: ZONISAMIDE 100 MG CAPSULE PO SCH ×2 (07:55→16:18)
[2019-06-04] MEDS: LORazepam 1 MG TABLET PO PRN (07:59)
[2019-06-04] MEDS: HALOPERIDOL 5 MG TABLET PO PRN (07:59)
[2019-06-04 08:00] VITALS: BP 142/78
[2019-06-04 16:51] VITALS: BP 129/84
[2019-06-05 08:00] VITALS: BP 125/79
[2019-06-05] MEDS: LORazepam 1 MG TABLET PO PRN (08:11)
[2019-06-05] MEDS: MAGNESIUM OXIDE 400 MG TABLET PO SCH (08:11)
[2019-06-05] MEDS: HALOPERIDOL 5 MG TABLET PO PRN (08:11)
[2019-06-05] MEDS: LITHIUM CARBONATE 300 MG TABLET PO SCH (08:12)
[2019-06-05] MEDS: QUEtiapine FUMARATE 200 MG TABLET PO SCH (08:12)
[2019-06-05] MEDS: CEPHALEXIN MONOHYDRATE 500 MG CAPSULE PO SCH (08:13)
[2019-06-05] MEDS: DOCUSATE SODIUM 100 MG CAPSULE PO SCH (08:13)
[2019-06-05] MEDS: ZONISAMIDE 100 MG CAPSULE PO SCH (08:13)
[2019-06-05] MEDS: SERTRALINE HCL 100 MG TABLET PO SCH (09:17)
[2019-06-05] MEDS ORDERED: DSS100 PO (11:38)
[2019-06-05] MEDS ORDERED: MAGOX PO (11:39)
== END 2019-06-05 12:00 | disposition home or self-care (01) | DRG 750 ==
LOC: EMS 15:52 → 3EC 18:44
DX: F25.1 Schizoaffective disorder, depressive type (principal); R45.851 Suicidal ideations; F15.20 Other stimulant dependence, uncomplicated; B19.20 Unspecified viral hepatitis C without hepatic coma; G40.909 Epilepsy, unspecified, not intractable, without status epilepticus; F17.210 Nicotine dependence, cigarettes, uncomplicated; F41.9 Anxiety disorder, unspecified; B15.9 Hepatitis A without hepatic coma; G47.00 Insomnia, unspecified; Z59.0 Homelessness; Z91.5 Personal history of self-harm; Z79.899 Other long term (current) drug therapy; Z71.51 Drug abuse counseling and surveillance of drug abuser
CPT/HCPCS: 83036; 83735; 84100; 84439; 84443; 85007; 87081; G0480; J1200; J1630; J2060

== ENCOUNTER 2019-07-03 11:57 | Inpatient (IN) | payer MEDICAID ==
[~2019-07-03] VITALS: Ht 180.3 cm; Wt 67.2 kg
[~2019-07-03 11:57] MED LIST changes: +DSS100 PO; +MAGOX PO
[2019-07-03] MEDS ORDERED: RISP2 PO (12:07)
[2019-07-03] MEDS ORDERED: TRAZ-220 PO (12:07)
[2019-07-03] MEDS ORDERED: LITH300T PO (12:12)
[2019-07-03] MEDS ORDERED: SERT100T12 PO (12:12)
[2019-07-03] MEDS ORDERED: SODIUM CHLORIDE 0.9% 1,000 ML IV ONE (12:15)
[2019-07-03 12:52] LABS: ANION GAP 12 mmol/L (8-16); CALCIUM, TOTAL 9.4 mg/dL (8.8-10.5); CARBON DIOXIDE 22 mmol/L (22-29); CHLORIDE 103 mmol/L (98-107); CREATININE 0.76 mg/dL (0.60-1.30); GLOMERULAR FILTR. RATE CALC > 60 mL/min (>60); GLUCOSE,RANDOM 92 mg/dL (70-110); POTASSIUM 4.2 mmol/L (3.5-5.1); SODIUM SERUM 137 mmol/L (136-145); UREA NITROGEN, BLOOD 24 mg/dL (7-18)
[2019-07-03 12:53] LABS: BASOPHILS % (AUTO) 0.9 % (0.0-2.0); EOSINOPHILS % (AUTO) 1.9 % (1.0-6.0); HEMATOCRIT 46.4 % (41-53); HEMOGLOBIN 15.6 g/dL (13.5-17.5); LYMPHOCYTES # (AUTO) 4.1 K/uL (1.0-4.8); LYMPHOCYTES % (AUTO) 37.6 % (22.0-44.0); MEAN CORPUSCULAR HEMOGLOBIN 28.7 pg (26.0-34.0); MEAN CORPUSCULAR HGB CONC 33.7 G/dL (31.0-37.0); MEAN CORPUSCULAR VOLUME 85 fL (80-100); MONOCYTES # (AUTO) 0.8 K/uL (0.1-1.0); MONOCYTES % (AUTO) 7.4 % (2.0-9.0); NEUTROPHILS # (AUTO) 5.7 K/uL (1.8-7.7); NEUTROPHILS % (AUTO) 52.2 % (40.0-70.0); PLATELET COUNT (AUTO) 280 K/uL (150-450); RED BLOOD CELL COUNT(AUTO) 5.44 MIL/uL (4.50-5.90); RED CELL DISTRIBUTION WIDTH 13.6 % (11.5-14.5)
[2019-07-03 12:58] LABS: SALICYLATE 1.7 mg/dL (2.8-20.0)
[2019-07-03] MEDS ORDERED: 0.9% SODIUM CHLORIDE 10 ML SYRINGE IVP PRN (13:00)
[2019-07-03] MEDS ORDERED: LORazepam 2 MG TABLET PO ONE (13:00)
[2019-07-03] MEDS ORDERED: ACETAMINOPHEN 325 MG TABLET PO PRN (13:00)
[2019-07-03] MEDS ORDERED: HALOPERIDOL 5 MG TABLET PO ONE (13:00)
[2019-07-03 13:15] LABS: ACETAMINOPHEN < 2 mcg/mL (10-30); CREATINE KINASE, TOTAL ONLY 199 U/L (39-308)
[2019-07-03 13:19] LABS: ALANINE AMINOTRANSFERASE 25 U/L (12-78); ALBUMIN 3.7 g/dL (3.4-5.0); ALKALINE PHOSPHATASE 95 U/L (46-116); ASPARTATE AMINOTRANSFERASE 29 U/L (15-37); BILIRUBIN,TOTAL 0.2 mg/dL (0.1-1.0); TOTAL PROTEIN, SERUM 8.4 g/dL (6.4-8.2)
[2019-07-03] MEDS ORDERED: ZOLPIDEM TARTRATE 10 MG TABLET PO PRN (13:45)
[2019-07-03 17:55] VITALS: BP 112/84
[2019-07-04] MEDS ORDERED: PNEUMOCOCCAL VACCINE POLYVALENT 0.5 ML VIAL [PPSV23] IM ONE (01:30)
[2019-07-04] MEDS ORDERED: INFLUENZA VIRUS VACCINE QVS 2019-20 (3YR+)/PF 60 MCG/0.5 ML SYRINGE IM ONE (01:30)
[2019-07-04 06:44] VITALS: BP 126/84
[2019-07-04 08:14] LABS: LITHIUM < 0.20 mmol/L (0.60-1.20)
[2019-07-04] MEDS ORDERED: CloNIDine HCL 0.1 MG TABLET PO PRN (08:15)
[2019-07-04] MEDS ORDERED: ONDANSETRON HCL 4 MG TABLET PO PRN (08:15)
[2019-07-04] MEDS ORDERED: BENZOCAINE/MENTHOL LOZENGE MM PRN (08:15)
[2019-07-04] MEDS ORDERED: BACITRACIN 28.4 GM OINTMENT TP PRN (08:15)
[2019-07-04] MEDS ORDERED: LOPERAMIDE HCL 2 MG CAPSULE PO PRN (08:15)
[2019-07-04] MEDS ORDERED: OMEPRAZOLE 20 MG CAPSULE PO PRN (08:15)
[2019-07-04] MEDS ORDERED: DOCUSATE SODIUM 100 MG CAPSULE PO PRN (08:15)
[2019-07-04] MEDS ORDERED: ALBUTEROL SULFATE HFA 90 MCG/PUFF 8 GM INHALER IH PRN (08:15)
[2019-07-04] MEDS ORDERED: PETROLATUM,WHITE 28 GM JELLY TP PRN (08:15)
[2019-07-04] MEDS ORDERED: MAG HYDROX/AL HYDROX/SIMETH ES 30 ML SUSPENSION UDCUP PO PRN (08:15)
[2019-07-04] MEDS ORDERED: MAGNESIUM HYDROXIDE SUSPENSION 30 ML UDCUP PO PRN (08:15)
[2019-07-04] MEDS ORDERED: ACETAMINOPHEN 325 MG TABLET PO PRN (08:15)
[2019-07-04 08:21] LABS: CHOL/HDL RATIO 3.7 (4.2-7.3); CHOLESTEROL 146 mg/dL (131-200); FREE T4 (FREE THYROXINE) 1.29 ng/dL (0.76-1.46); HDL CHOLESTEROL 40 mg/dL (40-60); LDL CHOL (CALC.) 93 mg/dL (0-130); THYROID STIMULATING HORMONE 0.66 uIU/mL (0.36-3.74); TRIGLYCERIDES 67 mg/dL (15-150)
[2019-07-04] MEDS: RisperiDONE 2 MG TABLET PO SCH (12:59)
[2019-07-04] MEDS: SERTRALINE HCL 100 MG TABLET PO SCH (12:59)
[2019-07-04] MEDS: LORazepam 2 MG TABLET PO PRN (13:08)
[2019-07-04 16:00] VITALS: BP 126/74
[2019-07-04] MEDS ORDERED: LITHIUM CARBONATE 300 MG TABLET PO SCH (17:00)
[2019-07-04] MEDS: TraZODone HCL 100 MG TABLET PO SCH (20:01)
[2019-07-05 01:30] VITALS: BP 128/82
[2019-07-05] MEDS: IBUPROFEN 600 MG TABLET PO PRN ×2 (01:38→14:58)
[2019-07-05] MEDS: LORazepam 2 MG TABLET PO PRN ×3 (01:38→16:31)
[2019-07-05] MEDS: RisperiDONE 2 MG TABLET PO SCH (08:49)
[2019-07-05] MEDS: BACITRACIN 28.4 GM OINTMENT TP SCH ×2 (08:50→16:31)
[2019-07-05] MEDS: SERTRALINE HCL 100 MG TABLET PO SCH (08:50)
[2019-07-05] MEDS: LITHIUM CARBONATE 450 MG ER TABLET PO SCH ×2 (08:51→16:31)
[2019-07-05] MEDS: HALOPERIDOL 5 MG TABLET PO PRN (14:58)
[2019-07-05 16:00] VITALS: BP 119/86
[2019-07-05] MEDS: TraZODone HCL 100 MG TABLET PO SCH (20:15)
[2019-07-06 01:15] VITALS: BP 122/91
[2019-07-06] MEDS: LORazepam 2 MG TABLET PO PRN (01:39)
[2019-07-06] MEDS: RisperiDONE 2 MG TABLET PO SCH (08:39)
[2019-07-06] MEDS: SERTRALINE HCL 100 MG TABLET PO SCH (08:39)
[2019-07-06] MEDS: LITHIUM CARBONATE 450 MG ER TABLET PO SCH ×2 (08:40→16:12)
[2019-07-06] MEDS: BACITRACIN 28.4 GM OINTMENT TP SCH ×2 (09:09→16:13)
[2019-07-06] MEDS: IBUPROFEN 600 MG TABLET PO PRN (13:32)
[2019-07-06] MEDS: ZONISAMIDE 100 MG CAPSULE PO SCH (16:12)
[2019-07-06] MEDS: CHLORHEXIDINE GLUCONATE 4% 118 ML TOPICAL LIQUID TP SCH (16:12)
[2019-07-06] MEDS: CEPHALEXIN MONOHYDRATE 500 MG CAPSULE PO SCH (16:12)
[2019-07-06] MEDS: SULFAMETHOX/TRIMETH DS 800-160 MG/TABLET PO SCH (16:13)
[2019-07-06 16:25] VITALS: BP 130/61
[2019-07-06] MEDS: TraZODone HCL 100 MG TABLET PO SCH (21:04)
[2019-07-07] MEDS: CEPHALEXIN MONOHYDRATE 500 MG CAPSULE PO SCH ×3 (01:11→16:29)
[2019-07-07] MEDS: HALOPERIDOL 5 MG TABLET PO PRN (08:45)
[2019-07-07] MEDS: SULFAMETHOX/TRIMETH DS 800-160 MG/TABLET PO SCH ×2 (08:45→16:29)
[2019-07-07] MEDS: LORazepam 2 MG TABLET PO PRN (08:45)
[2019-07-07] MEDS: ZONISAMIDE 100 MG CAPSULE PO SCH ×2 (08:45→16:29)
[2019-07-07] MEDS: SERTRALINE HCL 100 MG TABLET PO SCH (08:45)
[2019-07-07] MEDS: CHLORHEXIDINE GLUCONATE 4% 118 ML TOPICAL LIQUID TP SCH ×2 (08:45→16:29)
[2019-07-07] MEDS: BACITRACIN 28.4 GM OINTMENT TP SCH ×2 (08:45→16:29)
[2019-07-07] MEDS: LITHIUM CARBONATE 450 MG ER TABLET PO SCH ×2 (08:45→16:29)
[2019-07-07] MEDS ORDERED: RisperiDONE 1 MG TABLET PO SCH (09:00)
[2019-07-07] MEDS: QUEtiapine FUMARATE 200 MG TABLET PO SCH ×2 (09:42→20:46)
[2019-07-07 09:57] VITALS: BP 120/80
[2019-07-07 16:00] VITALS: BP 123/80
[2019-07-07] MEDS: TraZODone HCL 100 MG TABLET PO SCH (20:45)
[2019-07-08] MEDS: CEPHALEXIN MONOHYDRATE 500 MG CAPSULE PO SCH ×3 (00:30→16:39)
[2019-07-08] MEDS: ZONISAMIDE 100 MG CAPSULE PO SCH ×2 (08:20→16:39)
[2019-07-08] MEDS: SERTRALINE HCL 100 MG TABLET PO SCH (08:20)
[2019-07-08] MEDS: LITHIUM CARBONATE 450 MG ER TABLET PO SCH ×2 (08:20→16:39)
[2019-07-08] MEDS: SULFAMETHOX/TRIMETH DS 800-160 MG/TABLET PO SCH ×2 (08:20→16:39)
[2019-07-08] MEDS: QUEtiapine FUMARATE 200 MG TABLET PO SCH ×2 (08:22→20:13)
[2019-07-08] MEDS: CHLORHEXIDINE GLUCONATE 4% 118 ML TOPICAL LIQUID TP SCH ×2 (08:35→16:39)
[2019-07-08] MEDS: TraZODone HCL 100 MG TABLET PO SCH (20:13)
[2019-07-09] MEDS: CEPHALEXIN MONOHYDRATE 500 MG CAPSULE PO SCH ×3 (00:10→16:39)
[2019-07-09 08:51] VITALS: BP 116/80
[2019-07-09] MEDS: SULFAMETHOX/TRIMETH DS 800-160 MG/TABLET PO SCH ×2 (08:59→16:39)
[2019-07-09] MEDS: QUEtiapine FUMARATE 200 MG TABLET PO SCH ×2 (08:59→20:20)
[2019-07-09] MEDS: SERTRALINE HCL 100 MG TABLET PO SCH (08:59)
[2019-07-09] MEDS: LITHIUM CARBONATE 450 MG ER TABLET PO SCH ×2 (09:00→16:39)
[2019-07-09] MEDS: ZONISAMIDE 100 MG CAPSULE PO SCH ×2 (09:01→16:39)
[2019-07-09] MEDS: CHLORHEXIDINE GLUCONATE 4% 118 ML TOPICAL LIQUID TP SCH ×2 (09:04→16:53)
[2019-07-09] MEDS ORDERED: LORazepam 1 MG TABLET PO PRN (09:30)
[2019-07-09 16:00] VITALS: BP 124/79
[2019-07-09] MEDS: TraZODone HCL 100 MG TABLET PO SCH (20:19)
[2019-07-10] MEDS: CEPHALEXIN MONOHYDRATE 500 MG CAPSULE PO SCH ×4 (00:02→23:43)
[2019-07-10 05:16] VITALS: BP 122/84
[2019-07-10] MEDS: SERTRALINE HCL 100 MG TABLET PO SCH (08:12)
[2019-07-10] MEDS: SULFAMETHOX/TRIMETH DS 800-160 MG/TABLET PO SCH ×2 (08:12→16:26)
[2019-07-10] MEDS: QUEtiapine FUMARATE 200 MG TABLET PO SCH ×2 (08:13→20:07)
[2019-07-10] MEDS: LITHIUM CARBONATE 450 MG ER TABLET PO SCH ×2 (08:13→16:26)
[2019-07-10 08:14] VITALS: BP 119/72
[2019-07-10] MEDS: ZONISAMIDE 100 MG CAPSULE PO SCH ×2 (08:14→16:27)
[2019-07-10 16:00] VITALS: BP 128/80
[2019-07-10] MEDS: TraZODone HCL 100 MG TABLET PO SCH (20:06)
[2019-07-11 06:27] VITALS: BP 102/61
[2019-07-11 08:00] VITALS: BP 119/70
[2019-07-11] MEDS: LITHIUM CARBONATE 450 MG ER TABLET PO SCH (08:59)
[2019-07-11] MEDS: ZONISAMIDE 100 MG CAPSULE PO SCH (08:59)
[2019-07-11] MEDS: CEPHALEXIN MONOHYDRATE 500 MG CAPSULE PO SCH (09:00)
[2019-07-11] MEDS: QUEtiapine FUMARATE 200 MG TABLET PO SCH (09:00)
[2019-07-11] MEDS: SERTRALINE HCL 100 MG TABLET PO SCH (09:00)
[2019-07-11] MEDS: SULFAMETHOX/TRIMETH DS 800-160 MG/TABLET PO SCH (09:00)
[2019-07-11] MEDS: HALOPERIDOL 5 MG TABLET PO PRN (09:37)
[2019-07-11] MEDS ORDERED: LITH450CRT PO (13:35)
[2019-07-11] MEDS ORDERED: QUET200T29 PO (13:35)
[2019-07-11] MEDS ORDERED: SERT100T12 PO (13:35)
[2019-07-11] MEDS ORDERED: TRAZ-220 PO (13:35)
[2019-07-11] MEDS ORDERED: CEPH500 PO (15:48)
[2019-07-11] MEDS ORDERED: [UNRECOGNIZED DRUG - CODE] PO (15:51)
== END 2019-07-11 16:38 | disposition home or self-care (01) | DRG 750 ==
LOC: EMS 11:58 → B3A 17:19
DX: F25.9 Schizoaffective disorder, unspecified (principal); R45.850 Homicidal ideations; R45.851 Suicidal ideations; G40.909 Epilepsy, unspecified, not intractable, without status epilepticus; B19.20 Unspecified viral hepatitis C without hepatic coma; F15.90 Other stimulant use, unspecified, uncomplicated; F17.200 Nicotine dependence, unspecified, uncomplicated; F31.9 Bipolar disorder, unspecified; F41.9 Anxiety disorder, unspecified; G47.00 Insomnia, unspecified; R21 Rash and other nonspecific skin eruption; B15.9 Hepatitis A without hepatic coma; F19.10 Other psychoactive substance abuse, uncomplicated; K59.00 Constipation, unspecified; Z59.0 Homelessness; Z79.899 Other long term (current) drug therapy; Z71.51 Drug abuse counseling and surveillance of drug abuser
CPT/HCPCS: 84439; 84443; 90686; 90732; G0480; G0481

== ENCOUNTER 2019-07-12 18:22 | Emergency (ER) | payer MEDICAID ==
[~2019-07-12] VITALS: Ht 180.3 cm; Wt 62.7 kg
[~2019-07-12 18:22] MED LIST changes: -DSS100 PO; -LITH300C3 PO; +LITH300T PO; +LITH450CRT PO; -MAGOX PO; +QUET200T29 PO; +SERT100T12 PO; -SERT50TA12 PO; +TRAZ-220 PO
[2019-07-12 18:37] VITALS: BP 158/105
== END 2019-07-12 22:10 | disposition left against medical advice (07) ==
LOC: EMS 18:22
DX: Z53.21 Procedure and treatment not carried out due to patient leaving prior to being seen by health care provider (principal)

== ENCOUNTER 2019-07-14 16:31 | Inpatient (IN) | payer MEDICAID ==
[~2019-07-14] VITALS: Ht 172.7 cm; Wt 62.6 kg
[~2019-07-14 16:31] MED LIST changes: -CEPH500 PO; -LITH300T PO; -QUET200T PO
[2019-07-14] MEDS ORDERED: BACITRACIN 0.9 GM PACKET OINTMENT TP ONE (17:00)
[2019-07-14] MEDS ORDERED: DiphenhydrAMINE HCL 50 MG/ML VIAL IM ONE (17:00)
[2019-07-14] MEDS ORDERED: PERTUSS(ACELL),DIPH,TET VAC/PF 0.5 ML VIAL IM ONE (17:00)
[2019-07-14] MEDS ORDERED: HALOPERIDOL LACTATE 5 MG/ML VIAL IM ONE (17:00)
[2019-07-14] MEDS ORDERED: LORazepam 2 MG/ML VIAL IM ONE (17:00)
[2019-07-14 18:10] LABS: BASOPHILS % (AUTO) 0.9 % (0.0-2.0); EOSINOPHILS % (AUTO) 0.7 % (1.0-6.0); HEMATOCRIT 41.6 % (41-53); HEMOGLOBIN 13.9 g/dL (13.5-17.5); LYMPHOCYTES % (AUTO) 19.5 % (22.0-44.0); MEAN CORPUSCULAR HEMOGLOBIN 28.1 pg (26.0-34.0); MEAN CORPUSCULAR HGB CONC 33.3 G/dL (31.0-37.0); MEAN CORPUSCULAR VOLUME 84 fL (80-100); MONOCYTES # (AUTO) 1.5 K/uL (0.1-1.0); MONOCYTES % (AUTO) 9.7 % (2.0-9.0); NEUTROPHILS # (AUTO) 10.6 K/uL (1.8-7.7); NEUTROPHILS % (AUTO) 69.2 % (40.0-70.0); PLATELET COUNT (AUTO) 326 K/uL (150-450); RED BLOOD CELL COUNT(AUTO) 4.94 MIL/uL (4.50-5.90); RED CELL DISTRIBUTION WIDTH 13.6 % (11.5-14.5)
[2019-07-14 18:23] LABS: ANION GAP 16 mmol/L (8-16); CALCIUM, TOTAL 9.3 mg/dL (8.8-10.5); CARBON DIOXIDE 20 mmol/L (22-29); CHLORIDE 103 mmol/L (98-107); GLOMERULAR FILTR. RATE CALC > 60 mL/min (>60); GLUCOSE,RANDOM 87 mg/dL (70-110); POTASSIUM 3.2 mmol/L (3.5-5.1); SODIUM SERUM 139 mmol/L (136-145); UREA NITROGEN, BLOOD 45 mg/dL (7-18)
[2019-07-14 18:28] LABS: ALANINE AMINOTRANSFERASE 46 U/L (12-78); ALBUMIN 3.6 g/dL (3.4-5.0); ALKALINE PHOSPHATASE 81 U/L (46-116); ASPARTATE AMINOTRANSFERASE 65 U/L (15-37); BILIRUBIN,TOTAL 0.6 mg/dL (0.1-1.0)
[2019-07-14 19:55] LABS: AMPHET/METH SCREEN,URINE POSITIVE (NEGATIVE); BARBITURATE SCREEN, URINE NEGATIVE (NEGATIVE); BENZODIAZEPINES SCREEN,URINE POSITIVE (NEGATIVE); CANNABINOID SCREEN,URINE POSITIVE (NEGATIVE); COCAINE SCREEN,URINE NEGATIVE (NEGATIVE); METHADONE SCREEN, URINE NEGATIVE (NEGATIVE); OPIATE SCREEN,URINE NEGATIVE (NEGATIVE)
[2019-07-14 19:58] LABS: PHENCYCLIDINE SCREEN,URINE NEGATIVE (NEGATIVE)
[2019-07-14] MEDS ORDERED: POTASSIUM CHLORIDE 10% 40 MEQ/30 ML LIQUID UDCUP PO ONE (20:45)
[2019-07-14] MEDS ORDERED: DiphenhydrAMINE HCL 25 MG CAPSULE PO ONE (22:45)
[2019-07-14] MEDS ORDERED: OLANZapine 5 MG TABLET PO ONE (22:45)
[2019-07-14] MEDS ORDERED: LORazepam 2 MG TABLET PO ONE (22:45)
[2019-07-15 04:59] VITALS: BP 126/79
[2019-07-15] MEDS ORDERED: ALBUTEROL SULFATE HFA 90 MCG/PUFF 8 GM INHALER IH PRN (07:30)
[2019-07-15] MEDS ORDERED: BENZOCAINE/MENTHOL LOZENGE MM PRN (07:30)
[2019-07-15] MEDS ORDERED: MAG HYDROX/AL HYDROX/SIMETH ES 30 ML SUSPENSION UDCUP PO PRN (07:30)
[2019-07-15] MEDS ORDERED: BACITRACIN 28.4 GM OINTMENT TP PRN (07:30)
[2019-07-15] MEDS ORDERED: PETROLATUM,WHITE 28 GM JELLY TP PRN (07:30)
[2019-07-15] MEDS ORDERED: ONDANSETRON HCL 4 MG TABLET PO PRN (07:30)
[2019-07-15] MEDS ORDERED: IBUPROFEN 600 MG TABLET PO PRN (07:30)
[2019-07-15] MEDS ORDERED: DOCUSATE SODIUM 100 MG CAPSULE PO PRN (07:30)
[2019-07-15] MEDS ORDERED: MAGNESIUM HYDROXIDE SUSPENSION 30 ML UDCUP PO PRN (07:30)
[2019-07-15] MEDS ORDERED: OMEPRAZOLE 20 MG CAPSULE PO PRN (07:30)
[2019-07-15] MEDS ORDERED: CloNIDine HCL 0.1 MG TABLET PO PRN (07:30)
[2019-07-15] MEDS ORDERED: LOPERAMIDE HCL 2 MG CAPSULE PO PRN (07:30)
[2019-07-15] MEDS ORDERED: ACETAMINOPHEN 325 MG TABLET PO PRN (07:30)
[2019-07-15 08:30] VITALS: BP 107/78
[2019-07-15 16:12] VITALS: BP 108/79
[2019-07-15] MEDS: RisperiDONE 2 MG TABLET PO SCH (16:12)
[2019-07-15] MEDS: LORazepam 2 MG TABLET PO PRN (16:41)
[2019-07-15] MEDS: HALOPERIDOL 5 MG TABLET PO PRN (16:41)
[2019-07-15] MEDS: LITHIUM CARBONATE 450 MG ER TABLET PO SCH (17:00)
[2019-07-16 05:51] VITALS: BP 113/82
[2019-07-16 08:12] VITALS: BP 115/63
[2019-07-16 08:19] LABS: LITHIUM 0.58 mmol/L (0.60-1.20)
[2019-07-16 08:37] LABS: ANION GAP 8 mmol/L (8-16); CALCIUM, TOTAL 8.8 mg/dL (8.8-10.5); CARBON DIOXIDE 24 mmol/L (22-29); CHLORIDE 107 mmol/L (98-107); CHOL/HDL RATIO 2.3 (4.2-7.3); CHOLESTEROL 129 mg/dL (131-200); CREATININE 0.84 mg/dL (0.60-1.30); FREE T4 (FREE THYROXINE) 1.16 ng/dL (0.76-1.46); GLOMERULAR FILTR. RATE CALC > 60 mL/min (>60); GLUCOSE,RANDOM 82 mg/dL (70-110); HDL CHOLESTEROL 55 mg/dL (40-60); LDL CHOL (CALC.) 67 mg/dL (0-130); POTASSIUM 3.4 mmol/L (3.5-5.1); SODIUM SERUM 139 mmol/L (136-145); TRIGLYCERIDES 37 mg/dL (15-150); UREA NITROGEN, BLOOD 24 mg/dL (7-18)
[2019-07-16] MEDS: SERTRALINE HCL 100 MG TABLET PO SCH (09:00)
[2019-07-16] MEDS: LITHIUM CARBONATE 450 MG ER TABLET PO SCH ×2 (09:00→16:52)
[2019-07-16] MEDS: RisperiDONE 2 MG TABLET PO SCH ×2 (09:00→16:52)
[2019-07-16] MEDS ORDERED: LORazepam 2 MG/ML VIAL ONE (09:09)
[2019-07-16] MEDS ORDERED: DiphenhydrAMINE HCL 50 MG/ML VIAL ONE (09:10)
[2019-07-16] MEDS ORDERED: HALOPERIDOL LACTATE 5 MG/ML VIAL ONE (09:10)
[2019-07-16] MEDS ORDERED: DiphenhydrAMINE HCL 50 MG/ML VIAL IM ONE (09:15)
[2019-07-16] MEDS ORDERED: LORazepam 2 MG/ML VIAL IM ONE (09:15)
[2019-07-16] MEDS ORDERED: HALOPERIDOL LACTATE 5 MG/ML VIAL IM ONE (09:15)
[2019-07-16] MEDS ORDERED: POTASSIUM CHLORIDE 20 MEQ ER TABLET PO ONE (10:30)
[2019-07-16 16:07] VITALS: BP 110/67
[2019-07-16] MEDS: HALOPERIDOL 5 MG TABLET PO PRN (16:52)
[2019-07-16] MEDS: LORazepam 2 MG TABLET PO PRN (16:52)
[2019-07-17 06:25] VITALS: BP 123/76
[2019-07-17] MEDS: LITHIUM CARBONATE 450 MG ER TABLET PO SCH ×2 (08:36→16:23)
[2019-07-17] MEDS: SERTRALINE HCL 100 MG TABLET PO SCH (08:36)
[2019-07-17] MEDS: QUEtiapine FUMARATE 200 MG TABLET PO SCH ×2 (08:36→20:47)
[2019-07-17 08:47] LABS: ANION GAP 8 mmol/L (8-16); CALCIUM, TOTAL 8.8 mg/dL (8.8-10.5); CARBON DIOXIDE 25 mmol/L (22-29); CHLORIDE 104 mmol/L (98-107); CREATININE 0.76 mg/dL (0.60-1.30); GLOMERULAR FILTR. RATE CALC > 60 mL/min (>60); GLUCOSE,RANDOM 78 mg/dL (70-110); POTASSIUM 4.1 mmol/L (3.5-5.1); SODIUM SERUM 137 mmol/L (136-145); UREA NITROGEN, BLOOD 18 mg/dL (7-18)
[2019-07-17 10:08] VITALS: BP 109/68
[2019-07-17] MEDS: HALOPERIDOL 5 MG TABLET PO PRN (16:23)
[2019-07-17] MEDS: LORazepam 2 MG TABLET PO PRN (16:23)
[2019-07-17 16:36] VITALS: BP 112/70
[2019-07-17] MEDS: ZOLPIDEM TARTRATE 10 MG TABLET PO PRN (20:47)
[2019-07-18 07:00] VITALS: BP 114/76
[2019-07-18 07:52] LABS: BAND NEUTROPHILS % (MANUAL) 0 % (0-5)
[2019-07-18 07:58] LABS: HEMATOCRIT 44.2 % (41-53); HEMOGLOBIN 14.7 g/dL (13.5-17.5); MEAN CORPUSCULAR HEMOGLOBIN 28.6 pg (26.0-34.0); MEAN CORPUSCULAR HGB CONC 33.2 G/dL (31.0-37.0); MEAN CORPUSCULAR VOLUME 86 fL (80-100); PLATELET COUNT (AUTO) 316 K/uL (150-450); RED BLOOD CELL COUNT(AUTO) 5.13 MIL/uL (4.50-5.90)
[2019-07-18 08:23] LABS: MAGNESIUM 1.7 mg/dL (1.80-2.40); PHOSPHORUS 3.1 mg/dL (2.5-4.9)
[2019-07-18] MEDS: QUEtiapine FUMARATE 200 MG TABLET PO SCH ×2 (09:01→20:50)
[2019-07-18] MEDS: SERTRALINE HCL 100 MG TABLET PO SCH (09:02)
[2019-07-18] MEDS: LITHIUM CARBONATE 450 MG ER TABLET PO SCH ×2 (09:02→16:56)
[2019-07-18 09:37] LABS: EOSINOPHILS % (MANUAL) 6 % (1-6); LYMPHOCYTES % (MANUAL) 27 % (22-44); MONOCYTES % (MANUAL) 4 % (2-9); SEGMENTED NEUTROPHILS % 63 % (40-70)
[2019-07-18 16:00] VITALS: BP 117/76
[2019-07-18] MEDS: MAGNESIUM OXIDE 400 MG TABLET PO SCH (16:56)
[2019-07-18] MEDS: HALOPERIDOL 5 MG TABLET PO PRN (16:57)
[2019-07-18] MEDS: LORazepam 2 MG TABLET PO PRN (16:57)
[2019-07-18] MEDS: ZOLPIDEM TARTRATE 10 MG TABLET PO PRN (20:50)
[2019-07-19] MEDS: LITHIUM CARBONATE 450 MG ER TABLET PO SCH ×2 (09:24→16:02)
[2019-07-19] MEDS: MAGNESIUM OXIDE 400 MG TABLET PO SCH ×2 (09:25→16:02)
[2019-07-19] MEDS: QUEtiapine FUMARATE 200 MG TABLET PO SCH ×2 (09:25→20:33)
[2019-07-19] MEDS: SERTRALINE HCL 100 MG TABLET PO SCH (09:25)
[2019-07-19 10:53] VITALS: BP 106/71
[2019-07-19] MEDS: LORazepam 2 MG TABLET PO PRN (15:55)
[2019-07-19] MEDS: HALOPERIDOL 5 MG TABLET PO PRN (15:55)
[2019-07-19 16:15] VITALS: BP 115/77
[2019-07-19] MEDS: ZOLPIDEM TARTRATE 10 MG TABLET PO PRN (20:34)
[2019-07-20] MEDS: QUEtiapine FUMARATE 200 MG TABLET PO SCH ×2 (08:17→20:08)
[2019-07-20] MEDS: MAGNESIUM OXIDE 400 MG TABLET PO SCH ×2 (08:17→16:17)
[2019-07-20] MEDS: LITHIUM CARBONATE 450 MG ER TABLET PO SCH ×2 (08:17→16:17)
[2019-07-20] MEDS: SERTRALINE HCL 100 MG TABLET PO SCH (08:17)
[2019-07-20] MEDS: ZONISAMIDE 100 MG CAPSULE PO SCH ×3 (08:18→16:17)
[2019-07-20] MEDS: MULTIVITAMINS WITH MINERALS, THERAPEUTIC TABLET PO SCH (13:51)
[2019-07-20 16:03] VITALS: BP 123/67
[2019-07-20] MEDS: LORazepam 2 MG TABLET PO PRN (17:08)
[2019-07-20] MEDS: HALOPERIDOL 5 MG TABLET PO PRN (17:08)
[2019-07-21 06:36] VITALS: BP 122/80
[2019-07-21 07:53] LABS: LITHIUM 0.76 mmol/L (0.60-1.20)
[2019-07-21] MEDS: LORazepam 2 MG TABLET PO PRN ×2 (08:56→16:04)
[2019-07-21] MEDS: LITHIUM CARBONATE 450 MG ER TABLET PO SCH ×2 (08:56→16:04)
[2019-07-21] MEDS: MULTIVITAMINS WITH MINERALS, THERAPEUTIC TABLET PO SCH (08:56)
[2019-07-21] MEDS: SERTRALINE HCL 100 MG TABLET PO SCH (08:56)
[2019-07-21] MEDS: QUEtiapine FUMARATE 200 MG TABLET PO SCH ×2 (08:56→20:30)
[2019-07-21] MEDS: MAGNESIUM OXIDE 400 MG TABLET PO SCH ×2 (08:56→16:04)
[2019-07-21] MEDS: ZONISAMIDE 100 MG CAPSULE PO SCH ×2 (08:56→16:04)
[2019-07-21 16:00] VITALS: BP 119/68
[2019-07-21] MEDS: HALOPERIDOL 5 MG TABLET PO PRN (16:04)
[2019-07-22 08:00] VITALS: BP 115/84
[2019-07-22] MEDS: QUEtiapine FUMARATE 200 MG TABLET PO SCH ×2 (08:02→20:11)
[2019-07-22] MEDS: LORazepam 2 MG TABLET PO PRN ×2 (08:02→15:47)
[2019-07-22] MEDS: ZONISAMIDE 100 MG CAPSULE PO SCH ×2 (08:02→16:07)
[2019-07-22] MEDS: SERTRALINE HCL 100 MG TABLET PO SCH (08:02)
[2019-07-22] MEDS: LITHIUM CARBONATE 450 MG ER TABLET PO SCH ×2 (08:02→16:06)
[2019-07-22] MEDS: MAGNESIUM OXIDE 400 MG TABLET PO SCH ×2 (08:02→16:07)
[2019-07-22] MEDS: MULTIVITAMINS WITH MINERALS, THERAPEUTIC TABLET PO SCH (08:02)
[2019-07-22] MEDS: HALOPERIDOL 5 MG TABLET PO PRN (15:47)
[2019-07-22 16:00] VITALS: BP 113/68
[2019-07-22] MEDS: ZOLPIDEM TARTRATE 10 MG TABLET PO PRN (20:11)
[2019-07-23 06:22] VITALS: BP 121/67
[2019-07-23 08:07] VITALS: BP 111/68
[2019-07-23] MEDS: MULTIVITAMINS WITH MINERALS, THERAPEUTIC TABLET PO SCH (08:51)
[2019-07-23] MEDS: MAGNESIUM OXIDE 400 MG TABLET PO SCH (08:51)
[2019-07-23] MEDS: SERTRALINE HCL 100 MG TABLET PO SCH (08:51)
[2019-07-23] MEDS: QUEtiapine FUMARATE 200 MG TABLET PO SCH (08:51)
[2019-07-23] MEDS: ZONISAMIDE 100 MG CAPSULE PO SCH (08:52)
[2019-07-23] MEDS: LITHIUM CARBONATE 450 MG ER TABLET PO SCH (08:53)
[2019-07-23] MEDS ORDERED: MAGNESIUM OXIDE 400 MG TABLET PO SCH (09:00)
[2019-07-23] MEDS: LORazepam 2 MG TABLET PO PRN (10:46)
[2019-07-23] MEDS ORDERED: MAGOX PO (11:56)
== END 2019-07-23 12:45 | disposition home or self-care (01) | DRG 750 ==
LOC: EMS 16:32 → B3A 07-15 03:34
DX: F25.1 Schizoaffective disorder, depressive type (principal); R45.851 Suicidal ideations; F15.20 Other stimulant dependence, uncomplicated; G40.909 Epilepsy, unspecified, not intractable, without status epilepticus; F31.9 Bipolar disorder, unspecified; F41.9 Anxiety disorder, unspecified; K59.00 Constipation, unspecified; G47.00 Insomnia, unspecified; F17.200 Nicotine dependence, unspecified, uncomplicated; F12.20 Cannabis dependence, uncomplicated; E87.6 Hypokalemia; B19.20 Unspecified viral hepatitis C without hepatic coma; B15.9 Hepatitis A without hepatic coma; Z59.0 Homelessness; Z79.899 Other long term (current) drug therapy; Z91.19 Patient's noncompliance with other medical treatment and regimen
CPT/HCPCS: 12002; 83036; 83735; 84100; 84439; 85007; 87081; 90471; 90715; 96372; G0480; J1200; J1630; J2060